=== PATIENT | female | born 1960 | race Caucasian/White ===

== ENCOUNTER 2018-05-31 15:47 | Emergency (ER) | payer BC ==
[2018-05-31 15:56] VITALS: BP 169/88; PULSE 84; RESP 16; TEMP 98.4; O2SAT 98
--- NOTE | 2018-05-31 16:15 | ED PDOC ---
Upper Extremity Pain/Injury Time Seen by Provider: 05/31/18 16:25 Chief Complaint (Nursing): Upper Extremity Problem/Injury Chief Complaint (Provider): Upper Extremity Problem/Injury History/Exam Limitations: clinical condition (limited due to pain) Current Symptoms Are (Timing): Still Present Additional Complaint(s): Rubia Esteves is a 57 year old female with a past medical history of osteoporosis, who presents to the emergency department complaining of ongoing left elbow pain from a fall which occurred in october of 2016. Injury was reported as a subsequent fracture of the elbow. Patient also states having an MRI done, which revealed a fracture of the wrist. She subsequently was given a cast for her wrist and steroidal injections. Patient reports that wrist has improved but her elbow is persistent. PMD: [place] Past Medical History Reviewed: Historical Data, Nursing Documentation, Vital Signs Vital Signs: Last Vital Signs Temp 98.4 F 05/31/18 15:53 Pulse 84 05/31/18 15:53 Resp 16 05/31/18 15:53 BP 169/88 H 05/31/18 15:53 Pulse Ox 98 05/31/18 15:53 - Medical History PMH: Osteoporosis - Surgical History Surgical History: Appendectomy, (x3) - Family History Family History: States: Unknown Family Hx - Immunization History Hx Tetanus Toxoid Vaccination: No - Home Medications Home Medications: Ambulatory Orders Medication Instructions Recorded Ibuprofen [Motrin] 600 mg PO Q6 PRN #15 tab 10/30/16 traMADol [Ultram] 50 mg PO TID PRN #15 tab 10/30/16 Naproxen 375 mg PO Q8 PRN #21 tablet 05/31/18 - Allergies Allergies/Adverse Reactions: Allergies Allergy/AdvReac Type Severity Reaction Status Date / Time No Known Allergies Allergy Verified 05/31/18 15:53 Review of Systems ROS Statement: Except As Marked, All Systems Reviewed And Found Negative Musculoskeletal: Positive for: Arm Pain (Left elbow pain), Other (states wrist pain has improved ) Physical Exam - Reviewed Nursing Documentation Reviewed: Yes Vital Signs Reviewed: Yes - Physical Exam Appears: Positive for: Well Head Exam: Positive for: ATRAUMATIC, NORMOCEPHALIC Skin: Positive for: Normal Color, Warm, Dry Eye Exam: Positive for: Normal appearance, EOMI, PERRL Neck: Positive for: Normal, Painless ROM, Supple Cardiovascular/Chest: Positive for: Regular Rate, Rhythm. Negative for: Murmur Respiratory: Positive for: Normal Breath Sounds. Negative for: Respiratory Distress Gastrointestinal/Abdominal: Positive for: Normal Exam, Bowel Sounds, Soft. Negative for: Tenderness Back: Positive for: Normal Inspection. Negative for: L CVA Tenderness, R CVA Tenderness Extremity: Positive for: Tenderness (tenderness of medial epicondyle of elbow). Negative for: Swelling, Other (obvious effusion) Neurologic/Psych: Positive for: Alert, Oriented (x3) - ECG O2 Sat by Pulse Oximetry: 98 (RA) Pulse Ox Interpretation: Normal Medical Decision Making Medical Decision Making: Initial Time: 16:06 Initial Plan: --Left elbow X ray Time: 16:56 Left Elbow X-ray FINDINGS: BONES: Three views of the left elbow were performed for left elbow pain. No fracture is seen. No lytic process is noted. No dislocation is seen. Radial head is normal in outline. No significant epicondylar spurring is noted. Minimal olecranon spurring is seen. JOINTS: See above SOFT TISSUES: Normal. JOINT EFFUSION: None. OTHER FINDINGS: None IMPRESSION: No fracture. No joint effusion. Scribe Attestation: Documented by Matt Marks, acting as a scribe for Lorene Espinosa PA-C Provider Scribe Attestation: All medical record entries made by the Scribe were at my direction and personally dictated by me. I have reviewed the chart and agree that the record accurately reflects my personal performance of the history, physical exam, medical decision making, and the department course for this patient. I have also personally directed, reviewed, and agree with the discharge instructions and disposition. Disposition - Clinical Impression Clinical Impression: Elbow pain, left - Patient ED Disposition Is Patient to be Admitted: No - Disposition Disposition: Routine/Home Disposition Time: 17:11 Condition: FAIR Prescriptions: Naproxen 375 mg PO Q8 PRN #21 tablet PRN Reason: Pain, Moderate (4-7) Instructions: Lateral Epicondylitis (DC)
--- NOTE | 2018-05-31 16:57 | RAD ---
Date of service: 05/31/2018 PROCEDURE: Radiographs of the left elbow. HISTORY: elbow pain COMPARISON: No prior. FINDINGS: BONES: Three views of the left elbow were performed for left elbow pain. No fracture is seen. No lytic process is noted. No dislocation is seen. Radial head is normal in outline. No significant epicondylar spurring is noted. Minimal olecranon spurring is seen. JOINTS: See above SOFT TISSUES: Normal. JOINT EFFUSION: None. OTHER FINDINGS: None IMPRESSION: No fracture. No joint effusion.
== END 2018-05-31 17:18 | disposition home or self-care (01) ==
LOC: H.ER 15:47
DX: M25.522 Pain in left elbow (principal); M81.0 Age-related osteoporosis without current pathological fracture